=== PATIENT | male | born 1970 | race Caucasian/White ===

== ENCOUNTER 2016-08-21 06:58 | Emergency (ER) | payer OTHER ==
[~2016-08-21] VITALS: Ht 213.4 cm; Wt 81.6 kg
[2016-08-21 07:56] LABS: ABSOLUTE BASOPHIL COUNT 0 /CUMM (0.0-0.2); ABSOLUTE EOSINOPHIL COUNT 0.7 /CUMM (0.0-0.7); ABSOLUTE GRANULOCYTE CT 7.3 /CUMM (1.4-6.5); ABSOLUTE LYMPH COUNT 1.3 /CUMM (1.2-3.4); ABSOLUTE MONOCYTE COUNT 0.6 /CUMM (0.10-0.60); BASOPHIL % 0.4 % (0.0-2.0); EOSINOPHIL % 7.1 % (0-5); GRANULOCYTE % 73.1 % (42.2-75.2); HEMATOCRIT 42.5 % (42-52); MEAN CORPUSCULAR HGB 20.5 PG (27.0-31.0); MEAN CORPUSCULAR VOLUME 64.3 FL (80.0-94.0); MEAN PLATELET VOLUME 8.3 FL (7.4-10.4); PLATELET COUNT 196 /CUMM (130-400); RBC DISTRIBUTION WIDTH 14.8 % (11.5-14.5); RED BLOOD CELL CT 6.61 /CUMM (4.70-6.10)
--- NOTE | 2016-08-21 08:20 | ED GI/GU/ABDOMINAL COMPLAINT ---
History of Present Illness General Chief Complaint: General Adult Stated Complaint: FOOD BOLIS Source: patient, family, old records Exam Limitations: no limitations Vital Signs & Intake/Output Vital Signs & Intake/Output Vital Signs Date Time Temp Pulse Resp B/P B/P Pulse O2 O2 Flow FiO2 Mean Ox Delivery Rate 08/21 1039 96.9 66 18 132/80 99 Nasal 2.0L Cannula 08/21 0919 96.8 64 18 124/90 99 08/21 0701 98.6 78 18 135/92 98 Room Air Allergies Coded Allergies: NO KNOWN ALLERGIES (01/28/12) Reconcile Medications No Known Home Medications Triage Note: 45 YO MALE TO ER C/O BEEF ADAM STUCK IN THROAT SINCE 7PM LAST NIGHT. STATES IT HAS HAPPENED IN THE PAST AND HE HAS GOTTEN SCOPED TO GET IT OUT. NO RESP DISTRESS NOTED. PT ABLE TO SPEAK FULL SENTANCES. RA SATS 99% AT THIS TIME. PT DENEIS PAIN, STATES HE IS UNABLE TO EAT OR DRINK ANYTHING. Triage Nurses Notes Reviewed? yes Onset: Evening Duration: hour(s):, constant, continues in ED Timing: recent history Quality/Severity: moderate Location: unknown Radiation: no radiation Activities at Onset: eating Prior Abdominal Problems: similar symptoms Past Sexual History: Unobtainable at this time Modifying Factors: Worsens With: eating. 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 He is unable to swallow secretions or fluids. He denies fever chills chest pain cough shortness of breath dysuria rash abdominal pain bleeding. Past History Travel History Traveled to [place] past 21 day No Medical History Any Pertinent Medical History? 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 No Review of Systems Review of Systems Constitutional: Reports: no symptoms. EENTM: Reports: no symptoms. Respiratory: Reports: no symptoms. Cardiovascular: Reports: no symptoms. GI: Reports: see HPI, nausea, vomiting. Genitourinary: Reports: no symptoms. Musculoskeletal: Reports: no symptoms. Skin: Reports: no symptoms. Neurological/Psychological: Reports: no symptoms. Hematologic/Endocrine: Reports: no symptoms. Immunologic/Allergic: Reports: no symptoms. All Other Systems: Reviewed and Negative Physical Exam Physical Exam General Appearance: well developed/nourished, alert, awake, anxious, moderate distress Head: atraumatic, normal appearance Eyes: Bilateral: normal appearance, PERRL, EOMI, normal inspection. Ears, Nose, Throat, Mouth: hearing grossly normal, moist mucous membrane Neck: normal inspection, supple, full range of motion, normal alignment Respiratory: normal breath sounds, chest non-tender, no respiratory distress, quiet respiration, lungs clear Cardiovascular: regular rate/rhythm, normal peripheral pulses, norml femoral pulses equa Peripheral Pulses: 4+ carotid (R), 4+ carotid (L) Gastrointestinal: normal bowel sounds, soft, non-tender, no organomegaly Male Genitals: normal genitalia Back: normal inspection, normal range of motion Extremities: normal range of motion, no ligament instability Neurologic/Psych: no motor/sensory deficits, awake, alert, oriented x 3, normal gait, normal mood/affect, 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 No Severe Sepsis Present: No Septic Shock Present: No Progress Differential Diagnosis: gastritis, esophageal foreign body Plan of Care: Orders Procedure Date/time Status COMPREHENSIVE METABOLIC PANEL 08/21 0724 Complete CBC WITHOUT DIFFERENTIAL 08/21 0724 Complete Laboratory Tests 08/21/16 0735: Anion Gap 11, Estimated GFR > 60, BUN/Creatinine Ratio 22.9, Glucose 84, Calcium 9.3, Total Bilirubin 1.6 H, AST 23, ALT 40, Alkaline Phosphatase 50, Total Protein 7.2, Albumin 4.6, Globulin 2.6, Albumin/Globulin Ratio 1.8, CBC w Diff NO MAN DIFF REQ, RBC 6.61 H, MCV 64.3 L, MCH 20.5 L, RDW 14.8 H, MPV 8.3, Gran % 73.1, Lymphocytes % 13.2 L, Monocytes % 6.2, Eosinophils % 7.1 H, Basophils % 0.4, Absolute Granulocytes 7.3 H, Absolute Lymphocytes 1.3, Absolute Monocytes 0.6, Absolute Eosinophils 0.7, Absolute Basophils 0, PUBS MCHC 32.0 L Initial ED EKG: none Departure Departure Time of Disposition: 1131 Disposition: HOME OR SELF CARE Condition: Stable Clinical Impression Primary Impression: Impacted esophageal foreign body Qualifiers: Encounter type: initial encounter Qualified Code: T18.108A - Unspecified foreign body in esophagus causing other injury, initial encounter Referrals: DANNY BHATIA,NARCISO Perea (PCP/Family) Additional Instructions: Follow up with your certified dietary manager. Soft diet for 1 week. Departure Forms: Customer Survey General Discharge Information Prescriptions: Current Visit Scripts No Known Home Medications
[2016-08-21 10:39] VITALS: BP 132/80
--- NOTE | 2016-08-21 10:43 | Proc Note Endoscopy ---
Endoscopy Procedure Medical History: unchanged (see ER note) Mental Status: alert/oriented Heart/Lung Eval Prior to Sedation: within normal limits Candidate for Sedation? Yes Procedure Date: 08/21/16 Procedure Type: EGD with foreign body removal Devil Dog: Alcides Bergman MD ASA Classification: II Indications: Dysphagia, removal of foreign body. Instrument: diagnostic gastroscope Meds Received: MAC Patient's Tolerance: good Complications: none Extent Reached: second part of duodenum Procedure: After getting written informed consent the patient was placed in the left lateral decubitus position with pulse oximetry, cardiac monitoring, and supplemental oxygen given. A bite block was inserted and IV sedation was given until the desired effect was achieved. A high definition upper Olympus endoscope was then inserted into the mouth and advanced to the lower esophagus at which point a food bolus was encountered which was able to be pushed into the stomach using gentle pressure with the endoscope. The scope was then able to be advanced to the second portion of the duodenum with little difficulty. Retroflexed views and photodocumentation was obtained. Findings: Esophagus: The esophageal mucosa was grossly normal appearance. There was a food bolus encountered at the GE junction located at 42 cm from the incisors which was able to be pushed into the stomach with the endoscope as stated in the procedure section of this report. After the food bolus was removed the underlying mucosa was moderately inflamed, friable and bloody, but there were no obvious strictures, or masses appreciated and the GE junction was easily traversable by the upper endoscope after the food bolus was removed. Stomach: The prepyloric mucosa was minimally erythematous, but there were no ulcers, erosions, or masses appreciated. Distention and peristalsis of the stomach appeared normal. Retroflexed views revealed the previously removed food bolus as well as some liquid, but there was no significant hiatal hernia appreciated. Duodenum: The duodenal bulb was minimally erythematous, but there were no ulcers or erosions appreciated. The duodenal sweep and folds were grossly normal in appearance. Impression: 1. Food bolus at the GE junction status post removal by pushing it into the stomach. 2. Moderate erosive esophagitis after food bolus was removed. 3. Mild nonerosive prepyloric gastritis and duodenitis. Recommendations: 1. He was asked to resume taking Nexium regularly half an hour before his first meal a day for now. 2. He should follow an antireflux regimen. 3. He was instructed to stay on a soft solid diet for the rest the day and then he can advance his diet as tolerated. 4. He was instructed to follow-up with his outside him analyst and to follow up with his PCP for routine healthcare maintenance. CC: DANNY BHATIA,NARCISO Perea; VANESSA BHATIA,OSMAN
== END 2016-08-21 12:00 ==
LOC: ERH 06:58
PROVIDERS: Emergency Medicine
DX: T18.108A Unspecified foreign body in esophagus causing other injury, initial encounter (principal); K22.11 Ulcer of esophagus with bleeding; K29.60 Other gastritis without bleeding; K29.80 Duodenitis without bleeding; R13.10 Dysphagia, unspecified; K21.9 Gastro-esophageal reflux disease without esophagitis
CPT/HCPCS: 96374; 96375; J1610; J2765; J3010